=== PATIENT | male | born 1980 | race Native Hawaiian/Other Pacific Islander ===

== ENCOUNTER 2020-07-07 20:29 | Emergency (ER) | payer OTHER, SELFPAY ==
[2020-07-07 20:34] VITALS: BP 168/86; PULSE 60; RESP 16; TEMP 36.8; O2SAT 98; BMI 34.0
--- NOTE | 2020-07-07 20:46 | ED.EXTPRO ---
HPI - Extremity Problem General Chief complaint: Extremity Problem,Nontraumatic Stated complaint: GOUT RIGHT BIG TOE Time Seen by Provider: 07/07/20 20:30 Source: patient Mode of arrival: Ambulatory Limitations: no limitations History of Present Illness HPI Narrative: 40M nonsmoker with history of gout presents with a chief complaint of ongoing right great toe pain for the past few days. He denies any injury. He has had no fever or chills. He has a longstanding history of gout and states it presents just like this and in the same location. He has no runny nose, sore throat or cough. He has got no chest pain or shortness of breath. He is otherwise well and free of complaint. He did present to an outside facility a few days ago and was given a prescription for prednisone to take in addition to his existing indomethacin and hydrocodone prescriptions. He does not routinely take allopurinol or probenacid and does not have access to colchicine. Related Data Previous Rx's Medication Instructions Recorded colchicine 0.3 mg PO DAILY #20 tab 07/07/20 Allergies Allergy/AdvReac Type Severity Reaction Status Date / Time No Known Drug Allergies Allergy Verified 07/07/20 20:37 Review of Systems Constitutional Constitutional: Denies chills, Denies fatigue, Denies fever(s), Denies frequent falls, Denies lethargy and Denies weakness Eyes Eyes: Denies change in vision, Denies eye discharge, Denies irritation and Denies loss of vision ENT Ears, Nose, Mouth, and Throat: Denies change in voice, Denies dizziness, Denies neck pain, Denies sore throat and Denies throat swelling Cardiovascular Cardiovascular: Denies chest pain, Denies irregular heart rhythm, Denies lightheadedness, Denies palpitations, Denies dyspnea, Denies dyspnea on exertion and Denies orthopnea Respiratory Respiratory: Denies cough, Denies dyspnea, Denies dyspnea on exertion and Denies wheezing Gastrointestinal Gastrointestinal: Denies abdominal pain, Denies change in bowel habits, Denies diarrhea, Denies nausea and Denies vomiting Musculoskeletal Musculoskeletal: Reports arthralgias, Reports joint swelling, Denies neck pain and Denies numbness Integumentary/Breasts Skin/Breast: Denies pruritus, Denies erythema, Denies rash and Denies wounds Neurologic Neurologic: Denies behavioral changes, Denies confusion, Denies dizziness, Denies frequent falls, Denies loss of vision, Denies numbness and Denies weakness Psychiatric Psychiatric: Denies anxiety, Denies behavioral changes, Denies confusion, Denies depression, Denies homicidal ideation and Denies suicidal ideation Endocrine Endocrine: Denies fatigue, Denies flushing and Denies palpitations Hematologic/Lymphatic Hematologic/Lymphatic: Denies easy bruising Allergic/Immunologic Allergic/Immunologic: Denies urticaria, Denies throat swelling and Denies wheezing Patient History Social History Smoking Status: Never smoker Smoking Status: Never smoker alcohol intake frequency: holidays/special occasions only Substance Use Type: does not use Exam Narrative Exam Narrative: GEN: AOx3 and in mild distress EYES: Pupils are equal, round, and reactive to light and accommodation. Extraoccular muscles are intact bilaterally. There is no subconjunctival hemorrhage or exudate. CHEST: Lungs are clear to auscultation bilaterally and free of wheezes, rales, or rhonchi. Heart rate is regular rhythm, there are no murmurs, clicks, rubs, or gallops. There is no chest wall tenderness. ABD: Abdomen is soft and nontender. There is no guarding or rebound. Bowel sounds are normal in all 4 quadrants. There is no mass or organomegaly. EXT: Right great toe with mild swelling and minimal erythema, tenderness to palpate, tenderness increased with passive and active range of motion. SKIN: Warm, pink, and dry. No erythema or rash Initial Vital Signs Initial Vital Signs: Vital Signs Temperature 98.2 F 07/07/20 20:34 Pulse Rate 60 07/07/20 20:34 Respiratory Rate 16 07/07/20 20:34 Blood Pressure 168/86 H 07/07/20 20:34 Pulse Oximetry 98 07/07/20 20:34 Course Orders Ordered: Discontinued Medications Colchicine (Colchicine 0.6 Mg Tablet) 1.2 mg PO NOW ONE Stop: 07/07/20 20:52 Last Admin: 07/07/20 21:00 Dose: 1.2 mg Documented by: Vital Signs Vital signs: Vital Signs - 8 hr 07/07/20 20:34 Temperature 98.2 F Pulse Rate 60 Respiratory Rate 16 Blood Pressure 168/86 H Pulse Oximetry 98 Discharge Plan Departure Patient Disposition: Home Clinical Impression: Gout Qualifiers: Gout site: toe Gout etiology: unspecified cause Chronicity: acute Laterality: right Qualified Code(s): M10.9 - Gout, unspecified Instructions: DI for Gout Activity Restrictions/Additional Instructions: *You have been diagnosed with [acute great toe gouty arthritis] *What to do: *Take medications as directed *Follow up with your primary care provider in 2-3 days, call for an appointment. Let them know you were seen in the Emergency Department and that we ask that you be seen in follow up *Return to ER if you should have any new, worsening or concerning symptoms Prescriptions: New colchicine 0.6 mg tablet 0.3 mg PO DAILY Qty: 20 RF: 0
[2020-07-07] MEDS: COLCHICINE 0.6 MG TABLET 1.2 MG PO (21:00)
--- NOTE | 2020-07-07 21:02 | PC.NURSE ---
redness and swelling noted to right big toe.
[2020-07-07 21:13] VITALS: BP 137/74; PULSE 72; RESP 12; O2SAT 100
== END 2020-07-07 21:15 | disposition home or self-care (01) ==
PROVIDERS: Emergency Provider Emergency Medicine
DX: M10.9 Gout, unspecified (principal)
CPT/HCPCS: 99281; 99283

== ENCOUNTER → 2021-03-14 14:29 | Outpatient (CLI) | payer OTHER, SELFPAY ==
[2021-03-14 15:06] LABS: COVID19 -Nasal RAPID Negative (Negative)
== END ==
PROVIDERS: PCP Family Medicine; Visit Provider Student in an Organized Health Care Education/Training Program
DX: Z20.822 Contact with and (suspected) exposure to COVID-19 (principal)
CPT/HCPCS: 87635

== ENCOUNTER 2021-03-16 08:01 | Day surgery (SDC) | payer OTHER, SELFPAY ==
[2021-03-09 15:06] VITALS: BMI 32.8
[2021-03-16] VITALS (7 sets, daily range): BP systolic 132–150; BP diastolic 25–87; PULSE 51–74; RESP 16–21; TEMP 36.2–36.8; O2SAT 95–100; BMI 32.8
--- NOTE | 2021-03-16 08:26 | PM.PREOP ---
Pre-operative Note COVID-19 COVID-19 status: Negative Result date/Date tested (Pos, Neg/Pending): 03/14/21 Interval Note History & Physical reviewed/Exam performed by Physician: Yes Changes to H&P: No
[2021-03-16] MEDS: LACTATED RINGERS 1,000 ML 42 ML IV (08:32)
--- NOTE | 2021-03-16 08:37 | PM.HP.1 ---
History of Present Illness History of Present Illness Date Patient Seen: 03/16/21 Time Patient Seen: 08:37 Chief complaint: RIGHT AC JOINT Narrative: The patient is a 40-year-old gentleman who has had right shoulder pain that has not responded to non operative measures. Physical examination and radiographs appear to show concentration of the pain around the acromioclavicular joint. He at this point is prepared for arthroscopic distal clavicle excision. See my office note for details. Patient History Family & Social History Social History: household members spouse Tobacco & Substance use: Tobacco type smokeless tobacco Smoking Status Never smoker alcohol intake current alcohol intake frequency holiday/special occasion Substance Use Type does not use Meds Home Medications and Allergies Home Medications Medication Instructions Recorded Confirmed Type allopurinol 100 mg tablet 100 mg PO DAILY 03/16/21 03/16/21 History cyclobenzaprine 10 mg tablet 10 mg PO PRN PRN 03/16/21 03/16/21 History indomethacin 25 mg capsule 50 mg PO PRN PRN 03/16/21 03/16/21 History lisinopril 5 mg tablet 5 mg PO DAILY 03/16/21 03/16/21 History Allergies Allergy/AdvReac Type Severity Reaction Status Date / Time No Known Drug Allergies Allergy Verified 03/16/21 08:13 Review of Systems Review of Systems Narrative: Review systems is negative throughout. Exam Vital Signs (past 8 hours): - 03/16/21 08:17 Temperature 97.8 F Pulse Rate 51 L Respiratory Rate 16 Blood Pressure 139/80 Pulse Oximetry 100 Oxygen Delivery Method Room Air Oxygen Flow Rate 0 Narrative Exam Narrative: On physical examination he is a healthy, fit appearing 40-year-old gentleman. HEENT examination is normocephalic atraumatic. Chest is clear to auscultation. Cardiac exam is regular rate and rhythm. Abdomen is soft nontender with normall bowel sounds and no palpable masses. Extremities examination is documented in the in the clinic notes but he has tenderness to palpation over the acromioclavicular joint. He has a full range of motion and 5/5 strength in abduction internal and external rotation. Impingement signs are positive as is the cross body 80 duction sign. Assessment & Plan Assessment & Plan narrative: The patient is a healthy young man with the history of right shoulder pain for more than a year that has failed to respond to physical therapy. His MRI appears to show a irritation of the acromioclavicular joint. He has agreed to arthroscopic evaluation with debridement and distal clavicle excision. Should there be evidence of labral pathology or rotator cuff tear that will be addressed. The risks benefits and alternatives were discussed with him and he has agreed to proceed. Risks discussed included but were not limited to: Failure to improve, stiffness, infection, nerve damage, deep venous thrombosis, pulmonary embolism, stroke, myocardial infarction, permanent paralysis and . COVID-19 COVID-19 status: Negative Result date/Date tested (Pos, Neg/Pending): 04/11/21
[2021-03-16] MEDS: CEFAZOLIN 1 GM VIAL 2 GM IV (09:00)
--- NOTE | 2021-03-16 09:18 | SUR.OPER ---
Lateral on padded OR bed with cardona bag positioner, head on pillow, gel axillary roll in place, bottom leg bent with gel pad under knee to foot, upper leg straight and supported with pillows. Operative arm secured in shoulder positioning suspension device. non-operative arm secured on padded arm board. Safety belt at hip, tape over blanket securing lower legs.
[2021-03-16] MEDS: SODIUM CHLORIDE IRRIG SOLUTION 3,000 ML, EPINEPHrine 1 MG IRR (09:31)
[2021-03-16] MEDS: BUPIVACAINE 0.25% W/ EPI 30 ML VIAL INJ (09:32)
--- NOTE | 2021-03-16 10:10 | P.OP_ITS ---
Operative Date/Time/Diagnoses Date of procedure: 03/16/21 Time of procedure: 10:10 Pre-op diagnosis: 1. Right shoulder acromioclavicular osteoarthritis 2. Right shoulder impingement syndrome Post-op diagnosis: same Procedure & Clinicians Procedure: 1. Arthroscopic distal clavicle excision, right shoulder 2. Arthroscopic major debridement of superior labrum, coracoacromial ligament, subacromial bursa and type 2 acromion 3. Suprascapular nerve block by surgeon for postoperative pain control Same procedure as scheduled: Yes Indications: The patient is a 40-year-old gentleman with right shoulder pain that has persisted for more than a year despite non operative treatment options. He has agreed to arthroscopic treatment after discussion the risks benefits and alternatives as documented in my preoperative history and physical. Surgeon: Vikram Guzman Click Yes if Unassisted: Yes Anesthesia Type: General, Peripheral nerve block and Local Operative Notes Findings: 1. Normal glenohumeral cartilage with mild fraying of the superior and anterosuperior labrum consistent with a ?type 1 SLAP lesion? 2. Normal subscapularis 3. Normal biceps tendon and biceps insertion 4. Normal supraspinatus 5. Normal infraspinatus 6. Normal glenohumeral ligaments 7. Normal axillary pouch 8. Normal bursal surface of the rotator cuff 9. Type 2 acromion with impingement lesion 10. Extensive arthritic change of the distal clavicle 11. Exam under anesthesia notable for full range of motion and no evidence for pathologic laxity. Closure Type: primary Specimen(s): none sent Estimated Blood Loss (mL): 10 Blood products transfused: none Procedure in detail: The patient was seen in the preoperative area where he identified his right shoulder as the operative site and this was marked with my initials. He received preoperative antibiotics and was taken to the operating room and placed on the operating room table in a supine position where he underwent induction of a general anesthetic. Following the onset of satisfactory general anesthesia he was repositioned in the left lateral decubitus position after exam under anesthesia. Was stabilized in this position using the cardona bag. An axillary roll was used and all pressure points were well padded. A time-out was performed. The right arm was prepared from the fingertips to the base the neck with ChloraPrep in the usual fashion and draped through sterile drapes. The right arm was placed in 10 lb of balanced skin suspension. Subcutaneous landmarks were outlined on the skin with a marking pen. A suprascapular nerve block was performed through a superior approach using 10 mL of 0.25% Marcaine with epinephrine for postoperative pain control. Portal sites were selected. The posterior portal was created for the arthroscope and a diagnostic arthroscopy performed with the result given above. The anterior portal was created for the shaver which was inserted and used to debride the fraying of the anterosuperior labrum. We then withdrew all arthroscopic equipment from the glenohumeral joint. The arthroscope was placed in the subacromial space through the posterior portal and a lateral portal was created for instrumentation. A bursectomy was performed for visualization. Aft er release of the coracoacromial ligament, the type 2 acromion was converted to a type 1 acromion using the cutting block technique with the bur due to the impingement lesion found. The bur was then used to remove the distal 8-10 mm of clavicle due to the arthritic change and preoperative findings there. The bursa was copiously irrigated to remove bone dust. Closure was obtained with 4-0 Monocryl and Steri-Strips. An additional 20 mL of 0.25% Marcaine was injected half into the subacromial space and half into the subcutaneous tissues for postoperative pain control. Dressings of 4x4s, an ABD and adhesive dressing were applied followed by a sling and the patient was allowed to awaken from anesthesia and transferred to the recovery room in good condition having tolerated the procedure well. Complications: none Post-operative Condition: stable Disposition: PACU Plan for aftercare: The patient will be maintained on a standard arthroscopic subacromial decompression physical therapy protocol. He will be discharged today.
[2021-03-16] MEDS: hydrOXYzine pamoate 25 MG CAPSULE PO (10:47)
[2021-03-16] MEDS: OXYCODONE IR 5 MG TABLET PO (10:47)
--- NOTE | 2021-03-16 11:04 | SUR.PHASEII ---
1104 Discharged time only - patient stable on feet to transfer to wheelchair.
== END 2021-03-16 11:04 | disposition home or self-care (01) ==
PROVIDERS: PCP Family Medicine; Referring Provider Orthopaedic Surgery; Visit Provider Orthopaedic Surgery
PROC: (CPT 29805; principal; 2021-03-16 10:15)
DX: M19.011 Primary osteoarthritis, right shoulder (principal); M75.41 Impingement syndrome of right shoulder; Z72.0 Tobacco use
CPT/HCPCS: 29824; 29826; 29822; J0171; J0330; J0690; J1100; J2405; J2704; J3010